=== PATIENT | male | born 1940 | race Two or more races ===

== ENCOUNTER 2024-04-12 22:00 | Inpatient (IN) | payer OTHER ==
[~2024-04-12] VITALS: Ht 170.2 cm; Wt 76.9 kg
[2024-04-13] VITALS (11 sets, daily range): BP systolic 136–181; BP diastolic 68–89; PULSE 61–96; RESP 17–19; TEMP 97.5–98.7; O2SAT 95–98
[2024-04-13] MEDS ORDERED: ONDANSETRON HCL 4 MG/2 ML VIAL IV PRN (00:15)
[2024-04-13] MEDS ORDERED: DOCUSATE SOD 100 MG CAP PO PRN (00:15)
[2024-04-13] MEDS ORDERED: NITROGLYCERIN 0.4 MG SL TAB SL PRN (00:15)
[2024-04-13] MEDS ORDERED: LORazepam 2MG/ML-1ML VIAL IV ONE (00:15)
[2024-04-13] MEDS ORDERED: MORPHINE SULFATE INJ 2 MG/ml SYRG IV PRN (00:15)
[2024-04-13] MEDS ORDERED: ACETAMINOPHEN 325 MG TAB PO PRN (00:15)
[2024-04-13 07:29] LABS: Eosinophils # (auto) 0 10 ^3/uL (0-0.8); Hemoglobin 13.6 g/dL (13.5-17.5); Mean Corpuscular Volume 98.2 fL (80.0-100.0); Neutrophils # (auto) 6.7 10 ^3/uL (1.6-8.6)
[2024-04-13 07:31] LABS: Anion Gap 7 (5-15); Carbon Dioxide 23 mmol/L (20-31); Chloride 99 mmol/L (98-107); Potassium 3.7 mmol/L (3.5-5.1); Sodium 129 mmol/L (136-145)
[2024-04-13 07:32] LABS: Basophils # (auto) 0.1 10 ^3/uL (0-0.2); Basophils % (auto) 0.7 % (0.0-2.0); Hematocrit 38.3 % (41.0-53.0); Lymphocytes # (auto) 0.9 10 ^3/uL (0.4-5.4); Lymphocytes % (auto) 11.2 % (10.0-50.0); Mean Corpuscular Hemoglobin 34.9 pg (28.0-32.0); Mean Corpuscular Hgb Conc. 35.6 g/dL (32.0-36.0); Monocytes # (auto) 0.7 10 ^3/uL (0-1.3); Neutrophils % (auto) 80.1 % (37.0-80.0); Platelet Count (auto) 266 10^3/uL (140-450); Red Cell Distribution Width 14.9 % (11.8-14.3); White Blood Cell 8.4 10^3/uL (4.4-10.8)
[2024-04-13 07:33] LABS: Calcium 9.1 mg/dL (8.7-10.4)
[2024-04-13 07:37] LABS: BUN/Creatinine Ratio 12.9 (10.0-20.0); Blood Urea Nitrogen 9 mg/dL (9-23); Glucose 110 mg/dL (74-106)
[2024-04-13] MEDS: ASPirin 81 mg TAB PO SCH (10:10)
[2024-04-13] MEDS: ENOXAPARIN SOD 40 MG/0.4 ML SYRINGE SC SCH (10:10)
[2024-04-13] MEDS: QUEtiapine FUMARATE 25 MG TAB PO SCH (10:11)
[2024-04-13] MEDS: ATORVASTATIN 20 MG TAB PO SCH (21:04)
[2024-04-13] MEDS: DONEPEZIL HYDROCHLORIDE 5 MG TAB PO SCH (21:04)
[2024-04-13] MEDS ORDERED: hydrALAZINE HCL 20 MG/ML VL IV PRN (21:30)
[2024-04-14] VITALS (8 sets, daily range): BP systolic 126–158; BP diastolic 64–92; PULSE 71–90; RESP 16–20; TEMP 98.2–99.5; O2SAT 96–98
[2024-04-14 05:39] LABS: Basophils # (auto) 0 10 ^3/uL (0-0.2); Basophils % (auto) 0.1 % (0.0-2.0); Eosinophils # (auto) 0 10 ^3/uL (0-0.8); Eosinophils % (auto) 0.2 % (0.0-7.0); Hematocrit 41.3 % (41.0-53.0); Hemoglobin 14.3 g/dL (13.5-17.5); Lymphocytes # (auto) 1.1 10 ^3/uL (0.4-5.4); Lymphocytes % (auto) 10.9 % (10.0-50.0); Mean Corpuscular Hgb Conc. 34.6 g/dL (32.0-36.0); Mean Corpuscular Volume 98.2 fL (80.0-100.0); Monocytes # (auto) 1.3 10 ^3/uL (0-1.3); Monocytes % (auto) 12.7 % (0.0-12.0); Neutrophils % (auto) 76.1 % (37.0-80.0); Platelet Count (auto) 269 10^3/uL (140-450); Red Blood Cells 4.21 10^6/uL (4.5-5.90); Red Cell Distribution Width 14.8 % (11.8-14.3); White Blood Cell 10.5 10^3/uL (4.4-10.8)
[2024-04-14 05:55] LABS: Anion Gap 7 (5-15); Carbon Dioxide 25 mmol/L (20-31); Chloride 97 mmol/L (98-107); Potassium 3.8 mmol/L (3.5-5.1); Sodium 129 mmol/L (136-145)
[2024-04-14 05:56] LABS: Calcium 9.3 mg/dL (8.7-10.4)
[2024-04-14 06:01] LABS: BUN/Creatinine Ratio 14.3 (10.0-20.0); Blood Urea Nitrogen 12 mg/dL (9-23); Glucose 110 mg/dL (74-106)
[2024-04-14] MEDS: DONEPEZIL HYDROCHLORIDE 5 MG TAB PO SCH (18:21)
[2024-04-15] VITALS (7 sets, daily range): BP systolic 136–169; BP diastolic 59–73; PULSE 74–104; RESP 20–22; TEMP 97.9–98.3; O2SAT 94–98
[2024-04-15 07:29] LABS: Basophils # (auto) 0.1 10 ^3/uL (0-0.2); Eosinophils # (auto) 0 10 ^3/uL (0-0.8); Eosinophils % (auto) 0.1 % (0.0-7.0); Hematocrit 42.5 % (41.0-53.0); Lymphocytes # (auto) 1.4 10 ^3/uL (0.4-5.4); Lymphocytes % (auto) 15.1 % (10.0-50.0); Mean Corpuscular Hgb Conc. 35.3 g/dL (32.0-36.0); Monocytes # (auto) 0.8 10 ^3/uL (0-1.3); Neutrophils # (auto) 6.8 10 ^3/uL (1.6-8.6); White Blood Cell 9.1 10^3/uL (4.4-10.8)
[2024-04-15 07:31] LABS: Basophils % (auto) 0.7 % (0.0-2.0); Mean Corpuscular Hemoglobin 34.5 pg (28.0-32.0); Mean Corpuscular Volume 97.8 fL (80.0-100.0); Monocytes % (auto) 8.9 % (0.0-12.0); Neutrophils % (auto) 75.2 % (37.0-80.0); Nucleated Red Blood Cells % 0.1 %; Platelet Count (auto) 279 10^3/uL (140-450); Red Blood Cells 4.35 10^6/uL (4.5-5.90); Red Cell Distribution Width 15.2 % (11.8-14.3)
[2024-04-15 07:34] LABS: Anion Gap 8 (5-15); Carbon Dioxide 24 mmol/L (20-31); Chloride 96 mmol/L (98-107); Potassium 3.5 mmol/L (3.5-5.1); Sodium 128 mmol/L (136-145)
[2024-04-15 07:35] LABS: Calcium 9.7 mg/dL (8.7-10.4)
[2024-04-15 07:40] LABS: BUN/Creatinine Ratio 16.2 (10.0-20.0); Blood Urea Nitrogen 11 mg/dL (9-23); Glucose 101 mg/dL (74-106)
[2024-04-15] MEDS ORDERED: GADOTERATE MEG 10 MMOL/20ml INJ (0.5MMOL/ml) IV ONE (10:54)
[2024-04-15 11:23] LABS: Folate (Folic Acid) 19.17 ng/mL (>5.38)
[2024-04-15] MEDS ORDERED: ATOR20TA50 PO (15:55)
[2024-04-15] MEDS ORDERED: QUET1TAB11 PO (15:55)
[2024-04-15] MEDS ORDERED: ASPI-325 PO (15:55)
[2024-04-15] MEDS ORDERED: HALOPERIDOL LACTATE 5 MG/ML INJ VIAL ONE (17:53)
[2024-04-15] MEDS: HALOPERIDOL LACTATE 5 MG/ML INJ VIAL IM PRN (17:54)
[2024-04-15] MEDS: QUEtiapine FUMARATE 25 MG TAB PO SCH (22:18)
[2024-04-16 01:00] VITALS: BP 147/71; PULSE 77; RESP 20; TEMP 99.6; O2SAT 97
[2024-04-16 05:00] VITALS: BP 145/87; PULSE 77; RESP 20; TEMP 100; O2SAT 97
[2024-04-16 06:09] LABS: Basophils # (auto) 0 10 ^3/uL (0-0.2); Eosinophils # (auto) 0 10 ^3/uL (0-0.8); Hemoglobin 14.2 g/dL (13.5-17.5); Red Blood Cells 4.15 10^6/uL (4.5-5.90); Red Cell Distribution Width 14.9 % (11.8-14.3)
[2024-04-16 06:12] LABS: Basophils % (auto) 0.4 % (0.0-2.0); Hematocrit 40.4 % (41.0-53.0); Lymphocytes # (auto) 1.2 10 ^3/uL (0.4-5.4); Lymphocytes % (auto) 13.7 % (10.0-50.0); Mean Corpuscular Hemoglobin 34.3 pg (28.0-32.0); Mean Corpuscular Hgb Conc. 35.3 g/dL (32.0-36.0); Mean Corpuscular Volume 97.4 fL (80.0-100.0); Monocytes # (auto) 0.9 10 ^3/uL (0-1.3); Monocytes % (auto) 10.9 % (0.0-12.0); Neutrophils # (auto) 6.4 10 ^3/uL (1.6-8.6); Platelet Count (auto) 282 10^3/uL (140-450); White Blood Cell 8.5 10^3/uL (4.4-10.8)
[2024-04-16 06:13] LABS: Anion Gap 8 (5-15); Carbon Dioxide 24 mmol/L (20-31); Chloride 97 mmol/L (98-107); Potassium 3.7 mmol/L (3.5-5.1); Sodium 129 mmol/L (136-145)
[2024-04-16 06:14] LABS: Calcium 9.4 mg/dL (8.7-10.4)
[2024-04-16 06:19] LABS: BUN/Creatinine Ratio 18.3 (10.0-20.0); Blood Urea Nitrogen 13 mg/dL (9-23); Glucose 110 mg/dL (74-106)
[2024-04-16 08:00] VITALS: PULSE 72; O2SAT 96
[2024-04-16 09:00] VITALS: BP 148/79; PULSE 78; RESP 21; TEMP 99.8; O2SAT 97
[2024-04-17 06:07] LABS: RPR Non Reactive (Non Reactive)
== END 2024-04-16 09:15 | disposition home health service (06) | DRG 640 ==
LOC: TELE-WESTW 23:30 → TELE-CENTR 04-13 05:48
PROVIDERS: ADMIT Hospitalist; ATTEND Hospitalist
DX: E87.1 Hypo-osmolality and hyponatremia (principal); G93.41 Metabolic encephalopathy; F05 Delirium due to known physiological condition; F03.90 Unspecified dementia, unspecified severity, without behavioral disturbance, psychotic disturbance, mood disturbance, and anxiety; I10 Essential (primary) hypertension; I25.10 Atherosclerotic heart disease of native coronary artery without angina pectoris; G89.29 Other chronic pain; M54.50 Low back pain, unspecified; F17.200 Nicotine dependence, unspecified, uncomplicated; I25.2 Old myocardial infarction; Z82.49 Family history of ischemic heart disease and other diseases of the circulatory system
CPT/HCPCS: 36415; 70450; 70551; 70553; 72125; 73700; 80048; 82607; 82746; 84443; 85025; 86592; 87081; 95819; 97163; G0378